=== PATIENT | female | born 1980 | race Caucasian/White ===

== ENCOUNTER 2018-11-16 05:20 | Day surgery (SDC) | payer SELFPAY ==
[2018-11-11 11:25] LABS: Hematocrit 40.5 % (37-47); Hemoglobin 13.7 g/dl (12.0-15.0); Mean Corp Hgb Conc 33.8 g/gl (32-36); Mean Corpuscular Volume 88.6 fL (81-99); Platelet Count 231 K/mm3 (150-450); RBC Distribution Width SD 41.6 fl (35.1-43.9); Red Blood Count 4.57 M/mm3 (4.2-5.4); White Blood Count 8.4 K/mm3 (4.4-11.0)
[2018-11-11 11:32] LABS: Scan Indicated on CBC? Y/N NO
[2018-11-11 11:44] LABS: Creatinine, Serum 0.66 mg/dL (0.55-1.02); EST Glomerular Filtration Rate 105 mL/min (>60); Est Glom Filt Rate - Afr Amer 127 mL/min (>60)
[2018-11-11 11:53] LABS: Prothrombin Time (Protime)PT. 13.4 SECONDS (11.7-14.9)
[2018-11-11 11:54] LABS: Partial Thromboplast Time 26.4 Seconds (24.1-36.2)
--- NOTE | 2018-11-12 13:39 | PCM.HP.BLA ---
History and Physical Date of Admission: 11/16/18 Surgical History and Physical Mily Anne, a 37 year old female 4 1 1 1 6, presents for RAVH/BSO on November 16, 2018 at 7:30. -- Dyspareunia; Heavy Irregular Menses; Pelvic Pain -- Mily presents here today with spouse(Jackson) as referral from [facility] for heavy painful menses. Heavy,Painful Menses which began 2 years ago. Mily claims it started gradually and has been present worsened in last 6 months. It occurs with menses. It is located in the vagina. It is located in the lower abdomen. Mily characterizes the quality heavy bleeding. Severity is moderate and not improving. It is relieved by minimal by ibuprophen. Associated signs and symptoms are severe dyspareunia; disabled from menses and pain for at least a week monthly; family plans life around menses. Additional comments are: referred [facility].; Additional comments are: unacceptable side effects from OCPs; with vasectomy.; Additional comments are: recent pelvic u/s at [facility] normal. MEDICATIONS HISTORY: ALLERGIES: No Known Allergies Infections - Chicken pox Illnesses - no serious past illnesses Accidents - None Hospitalizations - see surgery Review of Systems: GENERAL - fatigue and weakness SKIN - Denies skin changes EYES - Denies visual changes EARS - Denies difficulty hearing NOSE - Denies nasal congestion or bleeding MOUTH - Denies sore throat or difficulty swallowing NECK - Denies pain or swelling RESPIRATORY - Denies shortness of breath or wheezing CARDIOVASCULAR - Denies palpitations or chest pain GASTROINTESTINAL - Denies nausea, vomiting, diarrhea, constipation GENITOURINARY - Denies dysuria, frequency of urination, incontinence of urine MUSCULOSKELETAL - Denies joint or muscle pain NEUROLOGICAL - Denies localized numbness or weakness PSYCHIATRIC - Denies depression or anxiety ENDOCRINE - Denies heat or cold intolerance, weight loss or gain HEMATO-IMMUNOLOGIC - Denies excessive bleeding with cuts SOCIAL HISTORY: Alcohol Use - None Smoking - Never Diet - no special diet Lifestyle - moderate stress lifestyle and Exercise - active work Seat Belt Use - most of the time Employer - [employer] Illicit Drug Use - None Sexual Activity - Spouse-Sig Other Name - Jackson Spouse-Sig Other Occupation - [employer] Children Name(s) - 6 children Control - Vasectomy FAMILY HISTORY: MENSTRUAL HISTORY: LMP Known?- DefiniteAmount/Duration - 6 days, Regularity - Regular, Frequency - monthly days, LMP - 11/05/18, Age Onset Menarche - 10 PAST PREGNANCIES: Total Pregnancies - 6; Full Term Pregnancies - 4; Premature - 1; Abortions, Induced - 0; Abortions, Spontaneous - 1; Ectopics - 0; Multiple Births - 1; Living Children - 6 SURGICAL HISTORY: 1. Appendectomy, 2002 ; Buzz Abebe 2. 2003 Umbilical Hernia Repair 3. 2016 (L) Ankle Surgery ; Dr. Zac Abebe PHYSICAL EXAM BP- 124/76 Sitting, Right arm, regular cuff Weight- 173.10181 lbs Height- 59 inch BMI:35.01 CONSTITUTIONAL - NAD, well nourished, and well developed SKIN - No rash, lesions, or ulcers HEENT - Normocephalic, PERRLA, EOMI NECK - No nodes, no nuchal rigidity and thyroid normal size and texture LYMPH NODES - Palpation of lymph nodes in neck and groins within normal limits LUNGS - CTA x2 without wheezes, crackles or rales CARDIAC - Regular rate and rhythm without rubs, murmurs, or gallops ABDOMEN - Without hepatosplenomegaly, distention, masses, rebound, or guarding; normal bowel sounds; no hernias and subumbilical 1 cm incision from hernia with mesh repair EXTREMITIES - No edema or calf tenderness NEUROLOGICAL - Cranial nerves II-XII grossly intact PSYCHIATRIC - A and O to time, place, person, mood and affect External Genital Vagina - non-tender without lesions Urethra/Urethral Meatus - non-tender Bladder - non-tender Vagina - vaginal gallegos are pink and moist without loss of rugae and no evidence of atropy Cervix - without cervical motion tenderness and has normal size and features without evident lesions and cervix high in vagina with little prolapse Uterus - multiparous size 6 cm & wt 75-125 g Adnexa - clear without masses or tenderness ASSESSMENT/PLAN: 1. Dyspareunia, Endometriosis Nos, Menorrhagia, Pelvic Pain and Unspec Discussed treatment options both medical and surgical. Declines OCPs, Mirena, and Endometrial ablation. Plan RAVH/BSO. Possible small mesh near umbilicus. Discussed RBAs and all questions answered.
[2018-11-16] VITALS (12 sets, daily range): BP systolic 85–125; BP diastolic 54–81; PULSE 56–79; RESP 14–16; TEMP 36.2–37.1; O2SAT 93–100; BMI 35.1
[2018-11-16 06:17] LABS: Internal QC Validated? YES +Cl - CLEAR BKGD; Pregnancy, Urine Negative Negative
--- NOTE | 2018-11-16 07:26 | PCM.OPRPT ---
Report of Operation Date of Procedure: 11/16/18 Pre-Operative Diagnosis: Endometriosis, Submucous Fibroids, Pelvic Pain Post-Operative Diagnosis: Endometriosis, Submucous Fibroids, Pelvic Pain, Dense Adhesions Surgery/Procedure Performed:: Robotic Assisted Vaginal Hysterectomy, Bilateral Salpingo-Oophorectomy, Lysis of Adhesions Description of Surgical Findings:: 8 cm uterus with normal-appearing fallopian tubes and ovaries. Dense adhesions of the omentum to the anterior abdominal wall especially to a previously placed umbilical hernia mesh. dish machine operator: Carlo Guardado Type of Anesthesia:: General - Endotracheal Anesthesiologist: Ramonita Jonas Specimen's removed: Uterus and bilateral fallopian tubes and ovaries Drains: Karimi to straight drain Estimated Blood Loss (mL): Minimal Fluids Replaced: Crystalloid Description of Procedure: Surgeon: Sajan Colvin MD, FACOG Indication: This is a 37 year old patient who has been having problems with severe pelvic pain. Conservative measures have not been helpful. The patient also had a previous umbilical hernia mesh placed at the umbilicus and adhesions were suspected. The patient has been counseled regarding the risks, benefits and alternatives of this procedure including the possibility of bleeding, infection, and injury to surrounding structures such as bowel bladder and all questions were answered. She understands that if BSO is needed that she will need to be on HRT for an indefinite period of time. Procedure: Pt taken to the operating room where after induction of general anesthesia the patient was prepped and draped in the usual sterile fashion and placed on a non-slip Huggy-u-vac device. Trendendelenburg test was satisfactory. Bladder was drained of urine with a Karimi catheter and left in place. Anterior cervix was grasped and cervix was dilated to about 3-4 mm. Uterus sounded to 8 cms. 0-Vicryl suture was placed at the 3:00 and 9:00 position of the cervix. A large Advincula Delineatolr Uterine Manipulator was then placed in the uterus to allow uterine manipulation and attention was turned to the laparoscopic portion of the procedure. Ropivocaine 0.5% was injected approximately 2-3 cm superior to the umbilicus and 11 cm right and left lateral to the umbilicus; an 8 mm robotic port was introduced approximately 11 cm left and lateral to the umbilicus directly with intraperitoneal placement confirmed with insufflation. Upon visualization with the robotic camera this area was clear of adhesions. The above adhesions in the midline and toward the uterus were noted. 8 mm robotic camera port was placed approximately 3 cm superior to the umbilicus under direct visualization. Adhesiolysis was carried out through this can port using the left lateral side port for visualization. Cautery was done with a monopolar scissors on a setting of 25 W coagulation as well as sharp dissection. After completion of the adhesiolysis a right robotic port was introduced under direct visualization. A 5 mm left upper quadrant manipulation port was introduced and airseal insufflation with CO2 was started. Robot was docked without difficulty and attention turned to the robotic portion of the procedure. Approximately 25 cc of Ropivicaine was used. Bilateral infundibulocal ligaments were ligated with 35 lyn bipolar coagulation to the level of the round ligament. The posterior aspect of the cervix was identified and then opened for about 1 cm using 25 watt monopolar cautery. Bladder flap was opened and divided to the level of the round ligaments using monopolar cautery. Progressive bites were then ligated on each side of the cervix with 35 lyn bipolar cautery to the uterine arteries. The anterior vaginal mucosa was then entered and cervix circumscribed with monopolar cautery. Uterus and attached ovaries and tubes were then removed through the vagina. Vaginal cuff was closed first with 0-Vicryl Cheli stitches placed at each angle followed by closure of the mid-cuff with 0-Monocryl V-lock suture in two layers. Pelvis was copiously irrigated with saline and urine was noted to be clear. Robot was undocked and trocars were removed with as much gas as possible. Incisions were closed with 4-0 Monocryl subcuticular sutures and incisions covered with steri-strip dressings. The patient tolerated the procedure well and was taken to the recovery room in satisfactory condition. Sponge, instruments and needle counts were all correct. There were no apparent complications of the surgery. Cefotan 2 gms IV was given prior to the procedure. Estimated Blood Loss: Minimal Specimen to Pathology: Uterus and bilateral tubes and ovaries Grafts/Implants Used: None - Complications None - Admit VTE Documentation VTE Present on Admission: Yes VTE Mechan Device Prophylaxis: SCD's VTE Pharm Prophylaxis ordered?: Yes
--- NOTE | 2018-11-16 07:30 | DCINST_ITS ---
Discharge Diet: No Restrictions Discharge Activity: Return to Normal Activity, May Not Drive - while taking narcotic pain medications., May Shower, May Take a Tub Bath May resume sexual activity in: 6-8 weeks Call your doctor if your incision/area has: Continuous Slow Oozing, Sudden Inc reased Bleeding, Increased Pain/ Swelling, Increased Redness, Foul Smelling Discharge Call your doctor if you observe: Fever of 101 or Higher, Inability to urinate, Inability to have a bowel movement, Using more than one pad per hour Allergies/Adverse Reactions: Allergies No Known Allergies Allergy (Verified 11/09/18 08:59) Medications to take at Discharge Multivitamin with Minerals [Multiple Vitamin] 1 ea PO DAILY 11/09/18 Docusate Sodium [Colace] 100 mg PO BID PRN PRN #60 cap 11/16/18 Estradiol 2 mg PO DAILY #100 tab 11/16/18 Oxycodone [Oxyir] 5 mg PO Q6H PRN PRN 7 Days #20 tab 11/16/18 The following prescriptions were given: Docusate Sodium [Colace] 100 mg PO BID PRN PRN #60 cap PRN Reason: Constipation Prescription Printed Estradiol 2 mg PO DAILY #100 tab Prescription Printed Oxycodone [Oxyir] 5 mg PO Q6H PRN PRN 7 Days #20 tab PRN Reason: Severe Pain (6-02/18) Prescription Printed Primary Care Physician: Jacy Blackwell MD [Primary Care Provider] - Test Results: Test results from this visit will be discussed in further detail at your follow- up appointment, if applicable. Please Follow Up With: Sajan Colvin MD When: 2 to 3 weeks
--- NOTE | 2018-11-16 07:30 | HYST_PTH ---
PATIENT: TOMAS DUNBAR LOC: [facility] U#:[id number] AGE/SX: 37/F ROOM: RE11/16/[address]: Dr. Sajan oClvin MD : 1980 BED: DIS: 11/17/2018 SPEC #: [id number] RECD: 11/16/18 13:19 STATUS: TONIA ROYAL #: [id number] RAGHU: 11/16/18 07:[address]: Sajan Colvin DEPT: SURGICAL PATHOLOGY RECD BY: Myrna Hutchinson ENTERED: 11/16/18 15:00 SP TYPE: HYSTERECT OTHR DR: Dr. Jacy Blackwell MD Tissues: Uterus, NOS Procedures: Surgery Specimen Level V HEADER OPERATION: Laparoscopic robotic hysterectomy, BSO PRE-OP DIAGNOSIS: Endometriosis, submucous fibroids, pelvic pain TISSUE SUBMITTED: Uterus, cervix, bilateral fallopian tubes and ovaries MICROSCOPIC DIAGNOSIS Uterus, hysterectomy: Cervix - nabothian cysts, squamous metaplasia and mild chronic inflammation. Endometrium - proliferative endometrium. Myometrium - focal adenomyosis. Right ovary - follicular cysts and corpus luteal cysts. Right fallopian tube - benign paratubal cyst. Left ovary - follicular cysts and corpus luteal cysts. Left fallopian tube - no pathologic change. AM:ibeth 11/17/18 MICROSCOPIC DESCRIPTION Slides are reviewed. GROSS DESCRIPTION Received in fixative is one container labeled with the patient's name and designated uterus, cervix, bilateral fallopian tubes and ovaries. The specimen consists of a hysterectomy specimen consisting of uterus with cervix and attached bilateral fallopian tubes and ovaries. The uterus with cervix weighs 119 gm and measures 10 x 7 x 4.5 cm. The serosal surface is cox, glistening. The external os is circular in contour. The ectocervical mucosa is unremarkable. The endocervical canal measures 4 cm in length and the endocervical mucosa is cox, glistening and unremarkable. Sections of the cervix reveal a few cysts filled with mucoid material. The triangular endometrial cavity measures 5 cm in length and up to 3.5 cm in width. The endometrium is cox, glistening without any mass lesion and measures 0.1 cm in thickness. Sections of the uterine wall do not reveal any mass lesion and it measures up to 2 cm in thickness. The right fallopian tube measures 8 cm in length and up to 1 cm in diameter. The fimbrial end is identified. Sections reveal unremarkable cut surfaces. The soft to cystic right ovary measures 3 x 25 x 1.5 cm. Sections reveal multiple cysts with clear to hemorrhagic fluid. The largest cyst measures 1.3 cm in greatest dimension. Sections reveal multiple cysts filled with clear fluid. The largest cyst measures 1 cm in greatest dimension. Manganese Breaker sections are submitted in ten cassettes as follows: 1 - anterior cervix, 2 - posterior cervix, 3 & 4 - anterior uterine wall, 5 & 6 - posterior uterine wall, 7 - right fallopian tube, 8 - right ovary, 9 - left fallopian tube, 10 - left ovary. SJ:ibeth 11/16/18 TC:5 CPT: 04931
[2018-11-16] MEDS: Ropivacaine 0.5% 30 ML Vial (10:44)
[2018-11-16] MEDS: oxyCODONE 5 MG Tablet PO ×2 (16:04→20:28)
[2018-11-16] MEDS: Estrogens,Conj. 1.25 MG Tablet PO (16:04)
[2018-11-16] MEDS: Dextrose 5%-Lactated Ringers 1,000 ML 150 ML IV ×2 (16:05→23:20)
[2018-11-16] MEDS: Ketorolac 30 MG/ML Syringe IV ×2 (16:45→22:01)
[2018-11-16] MEDS: Enoxaparin 30 MG/0.3 ML Syringe SC (18:25)
--- NOTE | 2018-11-16 22:00 | NURSING ---
Pt up and ambulated in room for first time since surgery; denies dizziness, tolerated well.
[2018-11-17 02:30] VITALS: BP 100/62; PULSE 69; RESP 16; TEMP 36.9; O2SAT 97
[2018-11-17] MEDS: Ketorolac 30 MG/ML Syringe IV (04:47)
--- NOTE | 2018-11-17 05:11 | NURSING ---
Karimi DC'd at this time; tolerated well by pt. Pt ambulating in room, tolerating well.
[2018-11-17 06:41] LABS: Hematocrit 34.3 % (37-47); Hemoglobin 11.7 g/dl (12.0-15.0); Mean Corp Hgb Conc 34.1 g/gl (32-36); Mean Corpuscular Volume 87.9 fL (81-99); Mean Platelet Vol. 8.6 fl (6.2-12.0); Platelet Count 207 K/mm3 (150-450); RBC Distribution Width SD 41.5 fl (35.1-43.9); White Blood Count 14.7 K/mm3 (4.4-11.0)
[2018-11-17 06:44] LABS: Scan Indicated on CBC? Y/N NO
[2018-11-17 07:01] LABS: Creatinine, Serum 0.66 mg/dL (0.55-1.02); EST Glomerular Filtration Rate 105 mL/min (>60); Est Glom Filt Rate - Afr Amer 127 mL/min (>60); Estimated Creatinine Clearance 142.54 ml/min
[2018-11-17 08:30] VITALS: BP 108/68; PULSE 72; RESP 16; TEMP 36.7; O2SAT 99
[2018-11-17] MEDS: Estrogens,Conj. 1.25 MG Tablet PO (08:35)
--- NOTE | 2018-11-17 08:57 | PCM.PN.OB ---
Subjective: Patient without complaints. Tolerating diet well. Positive flatus. Able to void on own. Ready to go home today. - Physical Exam Vital Signs Temp Pulse Resp BP Pulse Ox 98.1 F 72 16 108/68 99 11/17/18 08:30 11/17/18 08:30 11/17/18 08:30 11/17/18 08:30 11/17/18 08:30 Oxygen Delivery Method Room Air Weight: 173 lb 15.115 oz Body Mass Index (BMI) 35.1 Intake and Output for Last 24 Hours 11/15/18 11/16/18 11/17/18 23:59 23:59 23:59 Intake Total 3184 / 4483 2393 / 2393 Output Total 1050 / 1850 1500 / 1500 Balance 2134 / 2633 893 / 893 Laboratory Tests Past 24 Hrs 11/17/18 11/17/18 06:32 06:32 WBC 14.7 H RBC 3.90 L Hgb 11.7 L Hct 34.3 L MCV 87.9 MCH 30.0 MCHC 34.1 RDW 13.0 RDW Differential 41.5 Plt Count 207 MPV 8.6 Creatinine 0.66 Estim Creat Clear Calc 142.54 Est GFR (MDRD) Af Amer 127 Est GFR (MDRD) Non-Af 105 Wounds are clean, dry, intact. Good urine output. Hemoglobin and creatinine okay. Minimal vaginal bleeding. Medical Necessity - Tobacco Use Smoking Status: Never smoker Tobacco Use: Non-smoker Assessment/Plan Doing well postoperative day #1 status post robotic assisted vaginal hysterectomy and bilateral salpingo-oophorectomy. Will release to home with routine instructions.
--- NOTE | 2018-11-17 10:15 | CASEMGMT ---
RN CM Assessment Presentation: Robotic assisted vaginal hysterectomy and scar salpingo-oopherectomy. Intro role of CM and purpose of RN CM assessment. Pt is awake and alert. is in room. Demographics, PCP and Pharmacy verified. Pt plans to return home with assistance from her family. No concerns per pt and her . PCP: Dr. Jacy Blackwell Specialists: Dr. Colvin Preferred Pharmacy: [facility] in [place], [place] Insurance: [facility] Package Plan Prescription Benefit: no, pt will pay out of pocket. States she does not anticipate difficulty with cost of prescriptions. LNOK: , Reid Rivas Living Arrangements: Lives independently with her . Denies any care needs, and family can assist if needs arise. Transportation: Denies difficulty. Will have transportation to f/u appointments. DME: none HHC: none Patient DC goals: Home DC PLAN: Home. Alcon CHARLES RN ACM
[2018-11-17] MEDS: Ketorolac 10 MG Tablet PO (10:36)
== END 2018-11-17 11:40 | disposition home or self-care (01) ==
LOC: SDC 05:21 → AC 05:24 → MS2 11-17 10:50
PROVIDERS: Anesthesiology; Referring Provider Obstetrics & Gynecology; Visit Provider Obstetrics & Gynecology
PROC: 0UT94ZZ Resection of Uterus, Percutaneous Endoscopic Approach (ICD-10-PCS; CPT 49329; principal; 2018-11-16 07:10)
DX: N88.8 Other specified noninflammatory disorders of cervix uteri (principal); N72 Inflammatory disease of cervix uteri; D25.0 Submucous leiomyoma of uterus; N87.9 Dysplasia of cervix uteri, unspecified; N80.0 Endometriosis of uterus; N83.12 Corpus luteum cyst of left ovary; N83.11 Corpus luteum cyst of right ovary; N83.02 Follicular cyst of left ovary; N83.01 Follicular cyst of right ovary; N83.8 Other noninflammatory disorders of ovary, fallopian tube and broad ligament
CPT/HCPCS: 00840; 49329; 58552; 36415; 81025; 82565; 85027; 85610; 85730; 86850; 86900; 88307; J7120; J2405